=== PATIENT | male | born 1965 | race African-American/Black ===

== ENCOUNTER 2017-03-09 16:26 | Emergency (ER) | payer BC ==
[~2017-03-09] VITALS: Ht 175.3 cm; Wt 109.1 kg
[~2017-03-09 16:26] MED LIST: CIALIS5 MG PO
[2017-03-09 16:27] VITALS: BP 171/101; PULSE 77; TEMP 99.2
[2017-03-09] MEDS ORDERED: PREDNISONE20 MG PO (16:58)
[2017-03-09] MEDS ORDERED: NORCO 325 MG-51 TAB PO (16:58)
[2017-03-09] MEDS ORDERED: FLONASE NASAL S16 GM NS (17:03)
== END 2017-03-09 17:06 | disposition home or self-care (01) ==
LOC: COL.ER 16:26
DX: M54.32 Sciatica, left side (principal)

== ENCOUNTER → 2017-07-17 | Outpatient (CLI) | payer BC ==
[~2017-07-17] MED LIST changes: +FLONASE NASAL S16 GM NS; +NORCO 325 MG-51 TAB PO; +PREDNISONE20 MG PO
== END ==
LOC: COL.RAD 10:11
DX: M65.4 Radial styloid tenosynovitis [de Quervain] (principal); S63.591A Other specified sprain of right wrist, initial encounter

== ENCOUNTER → 2017-12-12 | Outpatient (CLI) | payer BC | LOC: COL.RAD 08:24 | DX: M46.82 Other specified inflammatory spondylopathies, cervical region (principal); M50.223 Other cervical disc displacement at C6-C7 level; M48.02 Spinal stenosis, cervical region; M99.71 Connective tissue and disc stenosis of intervertebral foramina of cervical region | CPT/HCPCS: A9585 ==